=== PATIENT | female | born 1985 | race Caucasian/White ===

== ENCOUNTER → 2016-11-28 | Outpatient (CLI) | payer BC ==
[~2016-11-28] MED LIST: ERGO400C PO; LACT1CAP52 PO; PREN1TAB53 PO
== END ==
LOC: LAB 21:13
PROVIDERS: ATTEND Obstetrics & Gynecology
DX: Z20.9 Contact with and (suspected) exposure to unspecified communicable disease (principal)
CPT/HCPCS: 36415; 86777; 86778

== ENCOUNTER 2017-06-09 01:45 | Inpatient (IN) ==
--- OUTSIDE RECORDS SUMMARY | 2017-06-09 01:52 | External Medical Summary | Continuity of Care Document ---
:1985 Author Organization [facility] Address [address] [place], [place] [id number] Phone Care Team Providers Name Role Phone Pedro Tate MD Unavailable Unavailable Allergies, Adverse Reactions, Alerts Substance Reaction Severity Status amoxicillin rash Unknown Active WARNIN allergy(ies) could not be collected because the type is not supported. Please contact [facility] practice for further details. 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) w/o abn findings Suprvsn of preg w history of pre-term - labor, second tri 23 weeks gestation of - Suprvsn of preg w history of pre-term - labor, first trimester Supervision of other high risk - pregnancies, first trimester Encntr screen for infections w sexl - mode of transmiss Encounter for screening for oth - infec/parastc diseases Encounter for screening of - mother 10 weeks gestation of - Suprvsn of preg w history of pre-term - labor, second tri Supervision of other high risk - pregnancies, second trimester 19 weeks gestation of - Suprvsn of preg w history of pre-term - labor, second tri Supervision of other high risk - pregnancies, second trimester 19 weeks gestation of - Suprvsn of preg w history of pre-term - labor, second tri Supervision of other high risk - pregnancies, second trimester 14 weeks gestation of - Decreased libido Decreased libido Pap Smear Screening, Cervix - Dysuria - Active Procedures Procedure Date OB Visit No Charge Results Test Name Date and Time Measure Units Reference Range Abnormal Flag Comments Unknown Advance Directives Directive Yes / No Effective Date File Name Unknown Encounters Encounter Practice Location Reason(s) Diagnoses Date Provider Care Team Description For Visit Members Aminta Reynaga Suprvsn of preg w Shasta Referring In Womens history of 3-201 Latonya. Provider: Juliocesar MCCALLUM, pre-term labor, 7 700 Latonya [address] Box second [facility] [place] L, 1522, weeks gestation Center [address] [place] [address], of [place], 120, [place] [id number], [facility] 120, Ronnell [place], tel:+ [phone] [facility] , [place]. [id number]. tel: tel: [phone] Aminta Reynaga Suprvsn of preg w Shasta Referring In Womens history of 5-201 Latonya. Provider: Juliocesar MCCALLUM, pre-term labor, 7 700 Latonya PO Box second [place] L, 1522, triSupervision of [address], other high risk [place]o Crowder, pregnancies, 120, [place] [id number], [facility] Ronnell [facility] 120, [place] [id number] weeks Ronnell DELU[place], tel:+2 gestation of [phone] [facility] , [place]. [id number]. tel: tel: [phone] Associates Ronnell Suprvsn of preg w Galileo- Shasta Referring In Womens Ultrasound history of 5-201 Latonya. Provider: Health XENA, pre-term labor, 7 700 Latonya PO Box second Medical [place] L, 1522, triSupervision of Center [address] [place] [address], other high risk Dr Jericho Fransisco DELU[place], pregnancies, 120, Center [id number], second Ronnell [place] 120, [place] [id number] weeks Ronnell [place], tel:+[phone] gestation of [id number] [place], , [place]. [id number]. tel: tel:[phone] Associates Ronnell December- Shasta In Womens 5-201 Latonya. Health XENA, 7 700 PO Box Medical 15[address], Center [place], Dr [place], 120, [id number], [place], [place], tel:[phone] , [place]. tel: [phone] Aminta [place] Suprvsn of preg w December- Shasta Referring In Womens history of 1-201 Latonya. Provider: Juliocesar MCCALLUM, pre-term labor, 7 700 Latonya PO Box second Medical [place] L, 1522, triSupervision of Center [address] [place] [address], other high risk [place] Crowder, pregnancies, 120, Center [id number], second [place] 120, [place] [id number] weeks Ronnell DELUNA, tel:+ gestation of [phone] [place], , [place]. [id number]. tel: tel:[phone] Associates Ronnell Suprvsn of preg w Nov- Shasta Referring In Womens history of 3-201 Latonya. Provider: Health XENA, pre-term labor, 7 700 Latonya PO Box first Medical [place] L, 1522, trimesterSupervis Center [address] [place] [address], ion of other high Dr Jericho Fransisco DELUNA, risk pregnancies, 120, Center [id number], first Ronnell [place] 120, [place] trimesterEncntr Ronnell [place], tel:+ screen for [phone] [place], infections w sexl , [place]. [id number]. mode of tel: tel:+ transmissEncounte [phone] r for screening for oth infec/parastc diseasesEncounter for screening of [id number] weeks gestation of Associates Ronnell Mejiantr for python programmer May- [place] Referring In Womens exam (general) 7-201 Hortencia. Provider: Juliocesar MCCALLUM, (routine) w/o abn 6 700 Latonya PO Box findingsPap Smear Medical [place] L, 1522, Screening, Cervix Center [address] [place], [facility], 120, [place] [id number], [facility] 120, [facility], tel:+ [phone] [place], , [place]. [id number]. tel: tel:+[phone] Aminta [place] Decreased libido Dec-0 Shasta Referring In Womens 4-201 Latonya. Provider: Juliocesar MCCALLUM, 5 700 Latonya PO Box Medical [place] L, 1522, Center [address] [place], [facility], 120, [place] [id number], Ronnell [place] [address], [facility], tel:+ [phone] [place], , [place]. [id number]. tel: tel: [phone] Aminta [place] Decreased libido Nov-0 Shasta Referring In Womens 6-201 Latonya. Provider: Juliocesar MCCALLUM, 5 700 Latonya PO Box Medical [place] L, 1522, Center [address] [place], [facility], 120, [place] [id number], [facility] 120, Ronnell [place], tel:[phone] [place], , [place]. [id number]. tel: tel:[phone] Aminta Reynaga Galileo-1 Shasta Referring In Womens 7-201 Latonya. Provider: Juliocesar MCCALLUM, 3 700 Pedro PO Box Medical [place] 1522, Center O, [address] [place], [facility], 120, , [id number], Ronnell [place], [facility], [place], . tel:[phone] tel: , . [id number] tel: [phone] Aminta Reyn[place] Shasta Referring In Womens 9-201 Latonya. Provider: Juliocesar MCCALLUM, 700 [facility] 1522, Center O, [address] [place], [place]iles [place], 120, St, [id number], Jose [place], [facility] [place], [address]. tel: [phone] tel: [phone] , . [id number] tel: [phone] Family History Family Member Diagnosis Age At Onset Maternal Grandmother Osteoporosis Sister Renal disease Mother Leukemia Mother Renal disease Paternal Grandfather Cardiovascular Disease Maternal Grandfather Stroke Paternal Grandfather Hypertension Mother Thyroid Disorder Father Hypertension Immunizations Vaccine Date Status Comments Unknown Payers Payer name Insurance type Covered republican ID Authorization(s) [facility] [id number] Social History Type Description Quantity Date Captured Alcohol Use Details No Caffeine Use Details Unknown Tobacco Use Status Unknown Smoking Status Never smoker Vital Signs Date / Height Weight BMI Pulse Blood Temperature Respiratory Body Head BMI Time: Rate Pressure Rate Surface Circumference percentile Area 4 3:35 kg/m PM eter (2) 136.10 23.7 100/60 -2017 lbs 3 mm[Hg] 3:40 kg/m PM eter (2) Chief Complaint And Reason For Visit Unknown Chief Complaint And Reason For Visit Reason For Referral Reason For Referral Unknown Plan Of Care Date Type Action Status Appointment Zulma Gallagher BOOKED Future Order: Radiology Order Complete OB Ultrasound > 14 Ordered Weeks ([id number]) Future Order: Lab Order Pap Smear With HPV Reflex If ASCUS Ordered ([id number]) Date Type Problem Goal Intervention Status Start Date Unknown. History Of Present Illness Encounter Date Complaint History Of Present Illness This patient has no known history of present illness Functional Status Encounter Date Functional Assessment Cognitive Assessment Unknown Medications Administered Medication Instructions Dosage Effective Dates (start - stop) Status Comments Drug Treatment Unknown Instructions Date Instruction Additional Information genetic testing Zika virus assessment & precautions HIV and other routine tests risk factors identified by history anticipated course of care nutrition and weight gain counseling, special diet toxoplasmosis precautions (cats / raw meat) sexual activity exercise indications for ultrasound influenza vaccine environmental / work hazards travel use of any medications (including supplements, vitamins, herbs, OTC drugs) domestic violence seat belt use childbirth classes / hospital facilities hospital registration
--- OUTSIDE RECORDS SUMMARY | 2017-06-09 01:52 | External Medical Summary | Continuity of Care Document ---
:1985 Author Organization [facility] Address [address] [place], [place] [id number] Phone Care Team Providers Name Role Phone Pedro Tate MD Unavailable Unavailable Allergies, Adverse Reactions, Alerts Substance Reaction Severity Status amoxicillin rash Unknown Active WARNIN allergy(ies) could not be collected because the type is not supported. Please contact [facility] practice for further details. 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 [...] other high risk - pregnancies, second trimester 27 weeks gestation of - Suprvsn of preg w history of pre-term - labor, second tri 23 weeks gestation of - Suprvsn of preg w history of pre-term - labor, second tri Supervision of other high risk - pregnancies, second trimester 14 weeks gestation of - Suprvsn of preg w history of pre-term - labor, third trimester Supervision of other high risk - pregnancies, third trimester Matern care for oth or susp poor fetl - grth, third tri, unsp 32 weeks gestation of - Suprvsn of preg w history of pre-term - labor, third trimester Supervision of other high risk - pregnancies, third trimester 34 weeks gestation of - Suprvsn of preg w history of pre-term - labor, third trimester Supervision of other high risk - pregnancies, third trimester Matern care for oth or susp poor fetl - grth, third tri, unsp 30 weeks gestation of - Suprvsn of preg w history of pre-term - labor, third trimester Supervision of other high risk - pregnancies, third trimester 32 weeks gestation of - Decreased libido Decreased libido Pap Smear Screening, Cervix - Dysuria - Active Procedures Procedure Date Unknown Results Test Name Date and Time Measure Units Reference Range Abnormal Flag Comments Unknown Advance Directives Directive Yes / No Effective Date File Name Unknown Encounters Encounter Practice Location Reason(s) Diagnoses Date Provider Care Team Description For Visit Members Aminta Lópezn of preg w Sep-2 Shasta Referring In Womens history of 5-201 Latonya. Provider: Juliocesar MCCALLUM, pre-term labor, 7 700 Latonya PO Box third Medical [place] L, 1522, trimesterSupervis Center [address] [place], ion of other high [place] Crow[place], risk pregnancies, 120, Center [id number], third [id number] [place], [place] 120, [place] weeks gestation Ronnell DELUNA, tel:+[phone] of [phone] [place], , [place]. [id number]. tel: tel: [phone] Associates Ronnell Sep-1 Shasta In Womens 8-201 Latonya. Juliocesar MCCALLUM, 7 700 PO Box Medical [address], [place] [address] [place], 120, [id number], [place], tel:[phone] , [place]. tel: [phone] Aminta [place] Suprraynan of preg w Sep-1 Shasta Referring In Womens history of 1-201 Latonya. Provider: Juliocesar MCCALLUM, pre-term labor, 7 700 Latonya PO Box third Medical [place] L, 1522, trimesterSupervis Center [address] [place], ion of other high [place] Crowder, risk pregnancies, 120, Center [id number], third [id number] Ronnell [place] 120, [place] weeks gestation Ronnell DELUNA, tel:+ of [phone] [place], , [place]. [id number]. tel: tel:[phone] Associates [facility] Suprvsn of preg w Sep-1 Shasta Referring In Womens Ultrasound history of 1-201 Latonya. Provider: Juliocesar MCCALLUM, pre-term labor, 7 700 Latonya PO Box third Medical [place] L, 1522, trimesterSupervis Center [address] [place], ion of other high [place] Crowder, risk pregnancies, 120, Center [id number], third Ronnell [place] 120, [place] trimesterMatern Ronnell DELUNA, tel:+ care for oth or [phone] [place], susp poor fetl , [place]. [id number]. grth, third tri, tel: tel:+[phone] unsp32 weeks [phone] gestation of Associates Ronnell Suprvsn of preg w Shasta Referring In Womens history of 9-201 Latonya. Provider: Health PA, pre-term labor, 7 700 Latonya PO Box third Medical [place] L, 1522, trimesterSupervis Center [address] [place] [address], ion of other high [place]o Crowder, risk pregnancies, 120, Center [id number], third Ronnell [facility] 120, [place] trimesterMatern Ronnell DELUNA, tel:+ care for oth or [phone] [place], susp poor fetl , [place]. [id number]. grth, third tri, tel: tel:+[phone] unsp30 weeks [phone] gestation of Associates Ronnell Suprvsn of preg w Shasta Referring In Womens history of 7-201 Latonya. Provider: Health XENA, pre-term labor, 7 700 Latonya PO Box second Medical [place] L, 1522, triSupervision of Center [address] [place] [address], other high risk [place] Crowder, pregnancies, 120, Center [id number], second Ronnell [facility] 120, [place] [id number] weeks Ronnell DELUNA, tel:+ gestation of [phone] [place], , [place]. [id number]. tel: tel: [phone] Aminta [place] Suprvsn of preg w Shasta Referring In Womens history of 3-201 Latonya. Provider: Health XENA, pre-term labor, 7 700 Latonya PO Box second tri23 Medical [place] L, 1522, weeks gestation Center [address] [place] [address], of Jer[place]o Crowder, 120, Center [id number] Galindo [facility] 120, [place] Ronnell DELUNA, tel:+ [phone] [place], , [place]. [id number]. tel: tel:[phone] Aminta [place] Suprvsn of preg w Shasta Referring In Womens history of 5-201 Latonya. Provider: Health XENA, pre-term labor, 7 700 Latonya PO Box second Medical [place] L, 1522, triSupervision of Center [address] [place] [address], other high risk [place] Crowder, pregnancies, 120, Center [id number], stephenie [place] 120, [place] weeks Ronnell DELUNA, tel:+[phone] gestation of [id number] [place], , [place]. [id number]. tel: tel:+[phone] Aminta [place] Suprvsn of preg w Galileo- Shasta Referring In Womens Ultrasound history of 5-201 Latonya. Provider: Juliocesar MCCALLUM, pre-term labor, 7 700 Latonya PO Box second Medical [place] L, 1522, triSupervision of Center [address] [place] [address], other high risk [place] Crowder, pregnancies, 120, Center [id number], [place] 120, [place] [id number] weeks Ronnell DELUNA, tel:+[phone] gestation of [id number] [place], , [place]. [id number]. tel: tel:+[phone] Aminta Reynaga December- Shasta In Womens 5-201 Latonya. Juliocesar MCCALLUM, 7 700 PO Box Medical [address], [place], [facility] [place], 120, [id number], [place], [place], tel:[phone] , [place]. tel: [phone] Aminta Reyn[place] Suprvsn of preg w December- Shasta Referring In Womens history of 1-201 Latonya. Provider: Juliocesar MCCALLUM, pre-term labor, 7 700 Latonya PO Box second Medical [place] L, 1522, triSupervision of Center [address] [place] [address], other high risk [place]o Crowder, pregnancies, 120, Center [id number], [place] 120, [place] [id number] weeks Ronnell DELUNA, tel:+[phone] gestation of [id number] [place], , [place]. [id number]. tel: tel:+[phone] Aminta Reynaga Suprvsn of preg w Nov- Shasta Referring In Womens history of 3-201 Latonya. Provider: Juliocesar MCCALLUM, pre-term labor, 7 700 Latonya PO Box first Medical [place] L, 1522, trimesterSupervis Center [facility] [place], marika of other high , [facility] [place] DELUNA, risk pregnancies, 120, Center [id number], [facility] Ronnell [facility] 120, [place] trimesterEncntr Ronnell DELUNA, tel:+[phone] screen for [id number] [place], infections w sexl , [place]. [id number]. mode of tel: tel:+-[phone] transmissEncounte [phone] r for screening for oth infec/parastc diseasesEncounter for screening of [id number] weeks gestation of Associates Ronnell Jose for manager food May- [place] Referring In Womens exam (general) 7-201 Hortencia. Provider: Juliocesar MCCALLUM, (routine) w/o abn 6 700 Latonya PO Box findingsPap Smear Medical [place] L, 1522, Screening, Cervix Center [facility] [address] [place], [facility], 120, Center [id number], Ronnell [facility] 120, [place] Ronnell DELUNA, tel:+ [phone] [place], , [place]. [id number]. tel: tel:[phone] Aminta [place] Decreased libido Dec-0 Shasta Referring In Womens 4-201 Latonya. Provider: Juliocesar MCCALLUM, 5 700 Latonya PO Box Medical [place] L, 1522, Center [facility] [address] [place], [facility], 120, Center [id number], Ronnell [facility] 120, Ronnell DELUNA, tel:+[phone] [place], , [place]. [id number]. tel: tel:[phone] Aminta [place] Decreased libido Nov-0 Shasta Referring In Womens 6-201 Latonya. Provider: Juliocesar MCCALLUM, 5 700 Latonya PO Box Medical [place] L, 1522, Center [facility] [address] [place], [facility] [place], 120, Center [id number], Ronnell [facility] 120, [place] Ronnell DELUNA, tel:[phone] [place], , [place]. [id number]. tel: tel: [phone] Associates Ronnell Jan- Shasta Referring In Womens 7-201 Latonya. Provider: Juliocesar MCCALLUM, 3 700 [facility] 1522, Center O, [address] [place], [place], 120, St, [id number], [facility], [place], [address]. tel: [phone] tel: , . [id number] tel: [phone] Associates Ronnell Nov- Shasta Referring In Womens 9-201 Latonya. Provider: Juliocesar MCCALLUM, 3 700 [facility] 1522, [place], [address] [place], [place], 120, St, [id number], [facility], [address]. tel: [phone] tel: , . [id number] tel: [phone] Family History Family Member Diagnosis Age At Onset Maternal Grandmother Osteoporosis Sister Renal disease Mother Leukemia Mother Renal disease Paternal Grandfather Cardiovascular Disease Maternal Grandfather Stroke Paternal Grandfather Hypertension Mother Thyroid Disorder Father Hypertension Immunizations Vaccine Date Status Comments Unknown Payers Payer name Insurance type Covered alliance party ID Authorization(s) [place] [id number] Social History Type Description Quantity Date Captured Unknown Vital Signs Date / Height Weight BMI Pulse Blood Temperature Respiratory Body Head BMI Time: Rate Pressure Rate Surface Circumference percentile Area Unknown Chief Complaint And Reason For Visit Unknown Chief Complaint And Reason For Visit Reason For Referral Reason For Referral Unknown Plan Of Care Date Type Action Status Appointment Zulma Gallagher BOOKED Appointment Zulma Gallagher BOOKED Appointment Zulma Gallagher BOOKED Zulma Hines BOOKED Future Order: Radiology Order Complete OB Ultrasound > 14 Ordered Weeks ([id number]) Future Order: Radiology Order Ultrasound OB Follow-up ([id number]) Ordered Future Order: Lab Order Pap Smear With [...]
--- OUTSIDE RECORDS SUMMARY | 2017-06-09 01:53 | External Medical Summary | Continuity of Care Document ---
:1985 Author Organization [facility] Address [address] [place], [place] [id number] Phone Care Team Providers Name Role Phone Pedro Tate MD Unavailable Unavailable Allergies, Adverse Reactions, Alerts Substance Reaction Severity Status amoxicillin rash Unknown Active WARNIN allergy(ies) could not be collected because the type is not supported. Please contact [facility] for further details. 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 Suprvsn of preg w history of pre-term - labor, third trimester Supervision of other high risk - pregnancies, third trimester 32 weeks gestation of - Suprvsn of [...] tri, unsp 30 weeks gestation of - Decreased libido Decreased libido Pap Smear Screening, Cervix - Dysuria - Active Procedures Procedure Date OB Visit No Charge Results Test Name Date and Time Measure Units Reference Range Abnormal Flag Comments Unknown Advance Directives Directive Yes / No Effective Date File Name Unknown Encounters Encounter Practice Location Reason(s) Diagnoses Date Provider Care Team Description For Visit Members [facility] Ronnell Gauthier of preg w Sep-2 [place] Referring In Womens history of 5-201 Latonya. Provider: Juliocesar MCCALLUM, pre-term labor, 7 700 [place]ony[place] [address] third Medical [place] L, 1522, [facility] Center [address] [place], ion of other high [place], risk pregnancies, 120, Center [id number], third [id number] Ronnell [place] 120, [place] weeks gestation Ronnell [place], tel:[phone] [place], , [place]. [id number]. tel: tel:[phone] Associates Ronnell Lópezn of preg w Sep-1 [place]asta Referring In Womens history of 1-201 Latonya. Provider: Juliocesar MCCALLUM, pre-term labor, 7 700 Latonya PO Box third Medical [place] L, 1522, trimesterSupervis Center [address] [place], ion of other high [place], risk pregnancies, 120, Center [id number], third [id number] Ronnell [place] 120, [place] weeks gestation Ronnell [place], tel:[phone] of [phone] [place], , [place]. [id number]. tel: tel:[phone] Associates Ronnell Lópezn of preg w Sep-1 [place] Referring In Womens Ultrasound history of 1-201 Latonya. Provider: Juliocesar MCCALLUM, pre-term labor, 7 700 Latonya PO Box third Medical [place] L, 1522, trimester[facility] Center [address] [place], ion of other high [place] Crow[place], risk pregnancies, 120, Center [id number], third Ronnell [place] 120, [place] trimesterMatern Ronnell [place], tel:[phone] care for oth or [phone] [place], susp poor fetl , [place]. [id number]. grth, third tri, tel: tel:[phone] unsp32 weeks [phone] gestation of Associates Ronnell Lópezn of preg w Mar-2 [place]asta Referring In Womens history of 9-201 Latonya. Provider: [facility], pre-term labor, 7 700 Latonya PO Box third Medical [place] L, 1522, trimesterSupervis Center [address] [place] [address], ion of other high [place] Crow[place], risk pregnancies, 120, Center [id number], third Ronnell [facility] 120, [place] trimesterMatern Ronnell [place], tel:[phone] care for oth or [phone] [place], susp poor fetl , [place]. [id number]. grth, third tri, tel: tel:+-[phone] unsp30 weeks [phone] gestation of Associates Ronnell Suprvsn of preg w Shasta Referring In Womens history of 7-201 Latonya. Provider: Juliocesar MCCALLUM, pre-term labor, 7 700 [place]onya PO Box second Medical [place] L, 1522, triSupervision of Center [address] [place] [address], other high risk [place] Crow[place], pregnancies, 120, Center [id number], second [place] 120, [place] [id number] weeks Ronnell DELUNA, tel:[phone] gestation of [id number] [place], , [place]. [id number]. tel: tel:[phone] Associates Ronnell Suprraynan of preg w Shasta Referring In Womens history of 3-201 Latonya. Provider: Juliocesar MCCALLUM, pre-term labor, 7 700 Latonya PO Box second tri23 Medical [place] L, 1522, weeks gestation Center [address] [place] [address], of [place], 120, Center [id number], Ronnell [facility] 120, [place] Ronnell [place], tel:[phone] [facility] , [place]. [id number]. tel: tel:[phone] Associates Ronnell Suprraynan of preg w [place]asta Referring In Womens history of 5-201 Latonya. Provider: Juliocesar MCCALLUM, pre-term labor, 7 700 Latonya PO Box second Medical [place] L, 1522, triSupervision of Center [address] [place] [address], other high risk [place] Crow[place], pregnancies, 120, Center [id number], second [place], [place] 120, [place] weeks REGI [place], tel:[phone] gestation of [phone] [place], , [place]. [id number]. tel: tel:[phone] Associates Ronnell Suprvsn of preg w Galileo- Shasta Referring In Womens Ultrasound history of 5-201 Latonya. Provider: Health [facility], pre-term labor, 7 700 Latonya PO Box second Medical [place] L, 1522, triSupervision of Center [address] [place] [address], other high risk Dr [facility], pregnancies, 120, Center [id number], second Ronnell [place] 120, [place] [email or web address] weeks REGI Ronnell, tel:+[phone] gestation of [id number] [place], , [place]. [id number]. tel: tel:[phone] Associates Ronnell December- Shasta In Womens 5-201 Latonya. Health XENA, 7 700 PO Box Medical 1522, [place], [facility] [place], 120, [id number], [place], tel:[phone] , [place]. tel: [phone] Aminta [place] Suprvsn of preg w December- Shasta Referring In Womens history of 1-201 Latonya. Provider: Juliocesar MCCALLUM, pre-term labor, 7 700 Latonya PO Box second Medical [place] L, 1522, triSupervision of Center [address] [place], [place] [address], other high risk [place] Crow[place], pregnancies, 120, Center [id number], second [place] 120, [place] [id number] weeks Ronnell DELUNA, tel:[phone] gestation of [id number] [place], , [place]. [id number]. tel: tel:[phone] Associates Ronnell Suprvsn of preg w Nov- Shasta Referring In Womens history of 3-201 Latonya. Provider: Juliocesar MCCALLUM, pre-term labor, 7 700 Latonya PO Box first Medical [place] L, 1522, trimesterSupervis Center [address] [place] [address], ion of other high [facility] [place], risk pregnancies, 120, Center [id number], first Ronnell [place] 120, [place] trimesterEncntr Ronnell [place], tel:+ screen for [phone] [place], infections w sexl , [place]. [id number]. mode of tel: tel:+[phone] transmissEncounte [phone] r for screening for oth infec/parastc diseasesEncounter for screening of hcdulo10 weeks gestation of Associates Ronnell Encntr for consulting practice manager May- [place] Referring In Womens exam (general) 7- [facility]. Provider: Juliocesar MCCALLUM, (routine) w/o abn 6 700 Latonya PO Box findingsPap Smear Medical [place] L, 1522, Screening, Cervix Center [address] [place], [facility], 120, Center [id number], Ronnell [facility] 120, [place] Ronnell [place], tel:[phone] [place], , [place]. [id number]. tel: tel:[phone] Aminta [place] Decreased libido Dec-0 Shasta Referring In Womens 4-201 Latonya. Provider: Juliocesar MCCALLUM, 5 700 Latonya PO Box Medical [place] L, 1522, Center [address] [place], [facility], 120, Center [id number], Ronnell [facility] 120, [place] Ronnell [place]UNA, tel:+ [phone] REGI, , [place]. [id number]. tel: tel:[phone] Aminta [place] Decreased libido Nov-0 Shasta Referring In Womens 6-201 Latonya. Provider: Juliocesar MCCALLUM, 5 700 Latonya PO Box Medical [place] L, 1522, Center [address] [place], [facility], 120, Center [id number], Ronnell [facility] 120, [place] Ronnell [place], tel:[phone] [place], , [place]. [id number]. tel: tel:[phone] Aminta [place] Galileo-1 [place]asta Referring In Womens 7-201 Latonya. Provider: Juliocesar MCCALLUM, 3 700 Pedro PO Box Medical [place] 1522, Center O, [address] [place], [place], 120, St, , [facility], [place], [address]. tel: [phone] tel: , . [id number] tel: [phone] Aminta [place] Nov- Shasta Referring In Womens 9-201 Latonya. Provider: [facility], [address] [place] [address] 1522, [place], [address] [place], [place], 120, St, [id number], [facility], [place], [address]. tel: [phone] tel: , . [phone] tel: [phone] Family History Family Member Diagnosis Age At Onset Maternal Grandmother Osteoporosis Sister Renal disease Mother Leukemia Mother Renal disease Paternal Grandfather Cardiovascular Disease Maternal Grandfather Stroke Paternal Grandfather Hypertension Mother Thyroid Disorder Father Hypertension Immunizations Vaccine Date Status Comments Unknown Payers Payer name Insurance type Covered republican ID Authorization(s) [facility] [id number] Social History Type Description Quantity Date Captured [...] Zulma Gallagher BOOKED Appointment Zulma Gallagher BOOKED Future Order: Radiology Order Complete OB Ultrasound > 14 Ordered Weeks ([id number]) Future Order: Radiology Order Ultrasound OB Follow-up ([id number]) Ordered Future Order: Lab Order Pap Smear [...]
--- OUTSIDE RECORDS SUMMARY | 2017-06-09 01:53 | External Medical Summary | Continuity of Care Document ---
:1985 Author Organization [facility] Address [address] [place], [place] [id number] Phone Care Team Providers Name Role Phone Pedro Tate MD Unavailable Unavailable Allergies, Adverse Reactions, Alerts Substance Reaction Severity Status amoxicillin rash Unknown Active WARNIN allergy(ies) could not be collected because the type is not supported. Please contact [facility] for further details. 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 [...] Procedures Procedure Date OB Visit No Charge Glucose test Hemoglobin count, colorimetric Hematocrit blood count Venpnctr fngr/heel/ear stick routne Results Test Name Date and Time Measure Units Reference Range Abnormal Flag Comments Panel Description: Glucose [Mass/volume] in Serum or Plasma --1 hour post 50 g glucose PO GLUCOSE, 104 mg/dL <140 N Test performed at [facility] GESTATIONAL SCREEN 11:20:[id number] ([id number])-[address] [place] [address]Ivosbpln: NEERU BETANCOURT DO,MPH Panel Description: HEMOGLOBIN + HEMATOCRIT HEMOGLOBIN 11:20:00 12.5 g/dL 11.7-15.5 N HEMATOCRIT 11:20:00 37.2 % 35.0-45.0 N Test performed at [facility] [id number] [place] [address]Rfsjlmvf: NEERU BETANCOURT DO,MPH Advance Directives Directive Yes / No Effective Date File Name Unknown Encounters Encounter Practice Location Reason(s) Diagnoses Date Provider Care Team Description For Visit Members [facility]nell Suprvsn of preg w 0 [place] Referring In Womens history of 7-201 Latonya. Provider: Juliocesar MCCALLUM, pre-term labor, 7 700 [place]onya PO Box second Medical [place] L, 1522, triSupervision of Center [address] [place] [address], other high risk [place] Crowder, pregnancies, 120, Center [id number], second [place] 120, [place] [email or web address] weeks Ronnell DELUNA, tel:+[phone] gestation of [phone] [place], , [place]. [id number]. tel: tel:+[phone] Associates Ronnell Suprvsn of preg w [place] Referring In Womens history of 3-201 Latonya. Provider: Juliocesar MCCALLUM, pre-term labor, 7 700 Latonya PO Box second [facility]23 Medical [place] L, 1522, weeks gestation Center [address] [place] [address], [address] Dr [facility] [place], 120, [place] [id number], Ronnell [facility] 120, [place] Ronnell [place], tel:[phone] [place], , [place]. [id number]. tel: tel:[phone] Associates Ronnell Suprvsn of preg w [place]asta Referring In Womens history of 5-201 Latonya. Provider: Juliocesar MCCALLUM, pre-term labor, 7 700 Latonya PO Box second Medical [place] L, 1522, triSupervision of Center [address] [place] [address], other high risk [place] Crowder, pregnancies, 120, [place] [id number], second Ronnell [place] 120, [place] weeks Ronnell DELUNA, tel:+[phone] gestation of [id number] [place], , [place]. [id number]. tel: tel:[phone] Associates Ronnell Suprvsn of preg w Jan- [place] Referring In Womens Ultrasound history of 5-201 Latonya. Provider: Juliocesar MCCALLUM, pre-term labor, 7 700 Latonya PO Box second Medical [place] L, 1522, triSupervision of Center [address] [place] [address], other high risk [facility] REGI, pregnancies, 120, Center [id number], second Ronnell [facility] 120, [place] [id number] weeks REGIRonnell, tel:+[phone] gestation of [id number] [place], , [place]. [id number]. tel: tel:[phone] Associates Ronnell December- Shasta In Womens 5-201 Latonya. Health XENA, 7 700 PO Box Medical 1522, [facility], , [facility] [place], 120, [id number], [place], [place], tel:[phone] , [place]. tel: [phone] Aminta [place] Suprvsn of preg w Shasta Referring In Womens history of 1-201 Latonya. Provider: Juliocesar MCCALLUM, pre-term labor, 7 700 [place]onya PO Box second Medical [place] L, 1522, triSupervision of Center [address] [place] [address], other high risk , [facility], pregnancies, 120, Center [id number], second Ronnell [facility] 120, [place] [id number] weeks Ronnell DELUNA, tel:+[phone] gestation of [id number] [place], , [place]. [id number]. tel: tel:+[phone] Aminta [place] Suprvsn of preg w Shasta Referring In Womens history of 3-201 Latonya. Provider: Juliocesar MCCALLUM, pre-term labor, 7 700 Latonya PO Box first Medical [place] L, 1522, trimesterSupervis Center [address] [place] [address], ion of other high [facility], risk pregnancies, 120, Center [id number], [facility], [place] trimesterEncntr Ronnell DELU[place], tel:+[phone] screen for [id number] [place], infections w sexl , [place]. [id number]. 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 Provider: Juliocesar MCCALLUM, (routine) w/o abn 6 700 Latonya PO Box findingsPap Smear [facility], 1522, Screening, Cervix Center [address] [place], [facility], 120, Center [id number], [facility] 120, Ronnell [place], tel:[phone] [place], , [place]. [id number]. tel: tel:[phone] Associates Ronnell Decreased libido Dec-0 [place]asta Referring In Womens 4-201 Latonya. Provider: Juliocesar MCCALLUM, 5 700 Latonya PO Box Medical [facility] L, 1522, Center [address] [place], [facility], 120, [place] [id number], Ronnell [facility] 120, [facility], tel:+ [phone] [place], , [place]. [id number]. tel: tel: [phone] Aminta [place] Decreased libido Nov-0 Shasta Referring In Womens 6-201 Latonya. Provider: Juliocesar MCCALLUM, 5 700 Latonya PO Box Medical [facility] L, 1522, Center [address] [place], [facility], 120, Center [id number], Ronnell [facility] 120, Ronnell DELUNA, tel:[phone] [place], , [place]. [id number]. tel: tel:[phone] Aminta [place] Galileo-1 [place]asta Referring In Womens 7-201 Latonya. Provider: Juliocesar MCCALLUM, [address] [facility] 1522, Center O, [address], [place], 120, St, [id number], Ronnell [place], [facility], [place], [address]. tel:[phone] tel: , [place]. [id number] tel: [phone] Aminta [place] Apr-1 [place]asta Referring In Womens 9-201 Latonya. Provider: Juliocesar MCCALLUM, [address] [facility] 1522, Center O, [address], [place], 120, St, , Keiry [place], REGI, [place], [address]. tel:[phone] tel:[phone] , . [id number] tel: [phone] Family History Family Member Diagnosis Age At Onset Maternal Grandmother Osteoporosis Sister Renal disease Mother Leukemia Mother Renal disease Paternal Grandfather Cardiovascular Disease Maternal Grandfather Stroke Paternal Grandfather Hypertension Mother Thyroid Disorder Father Hypertension Immunizations Vaccine Date Status Comments Unknown Payers Payer name Insurance type Covered libertarian ID Authorization(s) [facility] [id number] Social History Type Description Quantity Date Captured [...] Complete OB Ultrasound > 14 Ordered Weeks ([id number]) Future Order: Lab Order Pap Smear With [...]
--- OUTSIDE RECORDS SUMMARY | 2017-06-09 01:53 | External Medical Summary | Continuity of Care Document ---
:1985 Author Organization [facility] [employer] [facility] Address [address] [place], [place] [id number] Phone Care Team Providers Name Role Phone Pedro Tate MD Unavailable Unavailable Allergies, Adverse Reactions, Alerts Substance Reaction Severity Status amoxicillin rash Unknown Active WARNIN allergy(ies) could not be collected because the type is not supported. Please contact [facility] for further details. 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 [id number]. tel: tel:[phone] Associates Ronnell Lópezn of preg w Sep-1 Shasta Referring In Womens history of 1-201 Latonya. Provider: Juliocesar MCCALLUM, pre-term labor, 7 700 [place]onya PO Box third Medical [place] L, 1522, trimesterSupervis Center [address], ion of other high [place] Crow[place], risk pregnancies, 120, Center [id number], third [id number] Ronnell [place] 120, [place] weeks gestation Ronnell DELUNA, tel: of [phone] [place], , [place]. [id number]. tel: tel:[phone] Associates Ronnell Gauthier of preg w Sep-1 Shasta Referring In Womens Ultrasound history of 1-201 Latonya. Provider: Juliocesar MCCALLUM, pre-term labor, 7 700 [place] PO Box third Medical [place] L, 1522, trimesterSupervis Center [address], ion of other high [place] Crowder, risk pregnancies, 120, Center [id number], third Ronnell [place] 120, [place] trimesterMatern Ronnell DELUNA, tel:[phone] care for oth or [phone] [place], susp poor fetl , [place]. [id number]. grth, third tri, tel: tel:[phone] unsp32 weeks [phone] gestation of Associates Ronnell Gauthier of preg w Mar- Shasta Referring In Womens history of 9-201 Latonya. Provider: Health XENA, pre-term labor, 7 700 [place]onya PO Box third Medical [place] L, 1522, trimesterSupervis Center [address] [place] [address], ion of other high Jer[place]o Crowder, risk pregnancies, 120, Center [id number], third Ronnell [place] 120, [place] trimesterMatern Ronnell DELUNA, tel:+[phone] care for oth or [id number] [place], susp poor fetl , [place]. [id number]. grth, third tri, tel: tel:+[phone] unsp30 weeks [phone] gestation of Associates Ronnell Suprvsn of preg w Shasta Referring In Womens history of 7-201 Latonya. Provider: Juliocesar MCCALLUM, pre-term labor, 7 700 [place] PO Box second Medical [place] L, 1522, triSupervision of Center [address] [place] [address], other high risk [place]o Crowder, pregnancies, 120, Center [id number], second Ronnell [place] 120, [place] [email or web address] weeks Ronnell DELUNA, tel:+2 gestation of [id number] [place], , [place]. [id number]. tel: tel:[phone] Associates Ronnell Suprraynan of preg w Shasta Referring In Womens history of 3-201 Latonya. Provider: Juliocesar MCCALLUM, pre-term labor, 7 700 [place] PO Box second tri23 Medical [place] L, 1522, weeks gestation Center [address] [place] [address], of [place]o Crowder, 120, Center [id number] Galindo [facility] 120, [place] Ronnell DELUNA, tel:+ [phone] [place], , [place]. [id number]. tel: tel:[phone] Associates Ronnell Suprvsn of preg w Shasta Referring In Womens history of 5-201 Latonya. Provider: Juliocesar MCCALLUM, pre-term labor, 7 700 [place] PO Box second Medical [place] L, 1522, triSupervision of Center [address] [place] [address], other high risk [place]o Crowder, pregnancies, 120, Center [id number], second [place], [place] 120, [place] [email or web address] weeks Ronnell DELUNA, tel:+[phone] gestation of [id number] [place], , [place]. [id number]. tel: tel:[phone] Associates Ronnell Suprvsn of preg w Galileo- Shasta Referring In Womens Ultrasound history of 5-201 Latonya. Provider: Juliocesar MCCALLUM, pre-term labor, 7 700 [place] PO Box second Medical [place] L, 1522, triSupervision of Center [address] [place] [address], other high risk [place] Crowder, pregnancies, 120, Center [id number], second Ronnell, [place] 120, [place] [id number] weeks Ronnell DELUNA, tel:+[phone] gestation of [id number] [place], , [place]. [id number]. tel: tel:+[phone] Associates Ronnell December- Shasta In Womens 5-201 Latonya. Juliocesar MCCALLUM, 7 700 PO Box Medical [address], [address] [place], [facility] [place], 120, [id number], [place], tel:[phone] , [place]. tel: [phone] Aminta [place] Suprvsn of preg w December- Shasta Referring In Womens history of 1-201 Latonya. Provider: Juliocesar MCCALLUM, pre-term labor, 7 700 [place]ony[place] PO Box second Medical [place] L, 1522, triSupervision of Center [address] [place], [place] [address]ta, other high risk [place]o Crowder, pregnancies, 120, Center [id number], second Ronnell [place] 120, [place] weeks Ronnell DELUNA, tel:+[phone] gestation of [id number] [place], , [place]. [id number]. tel: tel:+[phone] Associates Ronnell Suprvsn of preg w Nov- Shasta Referring In Womens history of 3-201 Latonya. Provider: Juliocesar MCCALLUM, pre-term labor, 7 700 [place]ony[place] PO Box first Medical [place] L, 1522, trimesterSupervis Center [address] [place] [address], ion of other high [place]o Crowder, risk pregnancies, 120, Center [id number], first Ronnell [facility] 120, [place] trimesterEncntr Ronnell DELUNA, tel:[phone] screen for [id number] [place], infections w sexl , [place]. [id number]. 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 Provider: Juliocesar MCCALLUM, (routine) w/o abn 6 700 [place]onya PO Box findingsPap Smear Medical Shasta L, 1522, Screening, Cervix Center [address] [place], [facility], 120, Center [id number], Ronnell [facility] 120, Ronnell DELUNA, tel:[phone] [place], , [place]. [id number]. tel: tel:[phone] Aminta [place] Decreased libido Dec-0 Shasta Referring In Womens 4-201 Latonya. Provider: Juliocesar MCCALLUM, 5 700 [place]onya PO Box Medical [place] L, 1522, Center [address] [place], [facility], 120, Center [id number], Ronnell [facility] 120, [place] Ronnell DELUNA, tel:[phone] [place], , [place]. [id number]. tel: tel:[phone] Aminta [place] Decreased libido Nov-0 Shasta Referring In Womens 6-201 Latonya. Provider: Juliocesar MCCALLUM, 5 700 [place]onya PO Box Medical [place] L, 1522, Center [address] [place], [facility], 120, Center [id number], Ronnell [facility] 120, [place] Ronnell DELUNA, tel:[phone] [place], , [place]. [id number]. tel: tel:[phone] Aminta [place] Galileo-1 Shasta Referring In Womens 7-201 Latonya. Provider: Health XENA, 3 700 Pedro PO Box Medical [place] 1522, Center O, [address], [address], [place], 120, St, [id number], [facility], [place], [address]. tel: [phone] tel: , . [id number] tel: [phone] Aminta [place] Shasta Referring In Womens 9-201 Latonya. Provider: [facility], [address] [place] [address] 1522, Center O, [address] [place], [place], 120, St, [id number], [facility], [place], [address]. tel:[phone] tel: , . [id number] tel: [phone] Family History Family Member Diagnosis Age At Onset Maternal Grandmother Osteoporosis Sister Renal disease Mother Leukemia Mother Renal disease Paternal Grandfather Cardiovascular Disease Maternal Grandfather Stroke Paternal Grandfather Hypertension Mother Thyroid Disorder Father Hypertension Immunizations Vaccine Date Status Comments Unknown Payers Payer name Insurance type Covered libertarian ID Authorization(s) [facility] [id number] Social History Type Description Quantity Date Captured [...] Zulma Gallagher BOOKED Future Order: Radiology Order Ultrasound OB Follow-up ([id number]) Ordered Future Order: Radiology Order Complete OB Ultrasound > 14 Ordered Weeks ([id number]) Future Order: Lab Order Pap Smear With [...]
--- OUTSIDE RECORDS SUMMARY | 2017-06-09 01:53 | External Medical Summary | Continuity of Care Document ---
:1985 Author Organization [facility] [facility] Address [address] [place], [place] [id number] Phone Care Team Providers Name Role Phone Pedro Tate MD Unavailable Unavailable Allergies, Adverse Reactions, Alerts Substance Reaction Severity Status amoxicillin rash Unknown Active WARNIN allergy(ies) could not be collected because the type is not supported. Please contact [facility] practice for further details. 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 [...] other high risk - pregnancies, first trimester Encounter for screening of - mother 10 weeks gestation of - Encntr screen for infections w sexl - mode of transmiss Encounter for screening for oth - infec/parastc diseases Suprvsn of preg w history of pre-term [...] history of pre-term - labor, third trimester 32 weeks gestation of - Supervision of other high risk - pregnancies, third trimester Decreased libido Decreased libido Pap Smear Screening, Cervix - Dysuria - Active Procedures Procedure Date Injection Administration Injectable Drug - Do Not Bill OB Visit No Charge Results Test Name Date and Time Measure Units Reference Range Abnormal Flag Comments Unknown Advance Directives Directive Yes / No Effective Date File Name Unknown Encounters Encounter Practice Location Reason(s) Diagnoses Date Provider Care Team Description For Visit Members Aminta [place] Suprvsn of preg w Apr- Shasta Referring In Womens history of 1-201 Latonya. Provider: Juliocesar MCCALLUM, pre-term labor, 7 700 [place] PO Box third Medical [place] L, 1522, weeks gestation Center [address] [place] [address], of Jericho Crowder, pregnancySupervis 120, Center [id number], ion of other high Ronnell, [facility] 120, [place] risk pregnancies, Ronnell DELUNA, tel:[phone] third trimester [id number] [place], , [place]. [id number]. tel:+09-06 tel:[phone] Associates Ronnell Gauthier of preg w Sep- Shasta Referring In Womens Ultrasound history of 1-201 Latonya. Provider: Juliocesar MCCALLUM, pre-term labor, 7 700 [place]ony[place] PO Box third Medical [place] L, 1522, trimesterSupervis Center [address] [place] [address], ion of other high [place]o Crowder, risk pregnancies, 120, Center [id number], [facility], [place] trimesterMatern Ronnell DELUNA, tel:[phone] care for oth or [id number] [place], susp poor fetl , [place]. [id number]. grth, third tri, tel:+09-06 tel:[phone] unsp32 weeks [phone] gestation of Associates Ronnell Gauthier of preg w Shasta Referring In Womens history of 9-201 Latonya. Provider: Juliocesar MCCALLUM, pre-term labor, 7 700 [place]ony[place] PO Box third Medical [place] L, 1522, trimesterSupervis Center [address] [place] [address], ion of other high Jer[place]o Crowder, risk pregnancies, 120, Center [id number], third Ronnell [facility] 120, [place] trimesterMatern Ronnell DELUNA, tel:[phone] care for oth or [id number] [place], susp poor fetl , [place]. [id number]. grth, third tri, tel:+09-06 tel:+[phone] unsp30 weeks [phone] gestation of Associates Ronnell Gauthier of preg w 0 Shasta Referring In Womens history of 7-201 Latonya. Provider: Health PA, pre-term labor, 7 700 [place]onya PO Box second Medical [place] L, 1522, triSupervision of Center [address] [place] [address], other high risk , Jericho DELUNA, pregnancies, 120, Center [id number], second Ronnell [place] 120, [place] [id number] weeks Ronnell DELUNA, tel:+[phone] gestation of [id number] [place], , [place]. [id number]. tel: tel:[phone] Associates Ronnell Suprvsn of preg w Feb- Shasta Referring In Womens history of 3-201 Latonya. Provider: Health PA, pre-term labor, 7 700 [place]onya PO Box second tri23 Medical Shasta L, 1522, weeks gestation Center [address] [place] [address], of [place], 120, Center [id number], Ronnell [place] 120, [place] Ronnell DELUNA, tel:[phone] [place], , [place]. [id number]. tel: tel:[phone] Associates Ronnell Suprvsn of preg w Shasta Referring In Womens history of 5-201 Latonya. Provider: Health PA, pre-term labor, 7 700 [place]onya PO Box second Medical [place] L, 1522, triSupervision of Center [address] [place] [address], other high risk , Jericho DELUNA, pregnancies, 120, Center [id number], second [place] 120, [place] [id number] weeks Ronnell DELUNA, tel:+[phone] gestation of [id number] [place], , [place]. [id number]. tel: tel:[phone] Aminta [place] Suprvsn of preg w Jan- Shasta Referring In Womens Ultrasound history of 5-201 Latonya. Provider: Health XENA, pre-term labor, 7 700 [place]onya PO Box second Medical [place] L, 1522, triSupervision of Center [address] [place] [address], other high risk [place]o Crowder, pregnancies, 120, Center [id number], second Ronnell [place] 120, [place] [id number] weeks Ronnell DELUNA, tel:+[phone] gestation of [id number] [place], , [place]. [id number]. tel: tel:+ [phone] Associates Ronnell December- Shasta In Womens 5-201 Latonya. Health PA, 7 700 PO Box Medical 1522, Center [place], Jer[place], 120, [id number], [place], [place], tel:[phone] , [place]. tel: [phone] Aminta [place] Suprvsn of preg w Shasta Referring In Womens history of 1-201 Latonya. Provider: Health XENA, pre-term labor, 7 700 Latonya PO Box second Medical Shasta L, 1522, triSupervision of Center [address] [place], [place] [address], other high risk , [facility] [place] DELUNA, pregnancies, 120, [place] [id number], [facility] Ronnell [facility] 120, [place] [id number] weeks Ronnell DELUNA, tel:2 gestation of [id number] [place], , [place]. [id number]. tel: tel: [phone] Associates Ronnell Suprvsn of preg w Shasta Referring In Womens history of 3-201 Latonya. Provider: Juliocesar MCCALLUM, pre-term labor, 7 700 [place]ony[place] PO Box first Medical [place] L, 1522, trimesterSupervis Center [address] [place] [address], ion of other high , [facility] [place] DELUNA, risk pregnancies, 120, [place] [id number], [facility] 120, [place] trimesterEncounte Ronnell DELUNA, tel: r for [phone] [place], screening of , [place]. [id number]. [id number] weeks tel: tel:+[phone] gestation of [phone] pregnancyEncntr screen for infections w sexl mode of transmissEncounte r for screening for oth infec/parastc diseases Associates Ronnell Pap Smear May- [place] Referring In Womens Screening, - [place]. Provider: Juliocesar MCCALLUM, CervixEncntr for 6 700 Latonya PO Box career development director exam Medical Shasta L, 1522, (general) [facility], (routine) w/o abn [place] Crow[place], findings 120, [place] [id number], Ronnell [facility] 120, Ronnell DELUNA, tel:[phone] [place], , [place]. [id number]. tel: tel: [phone] Associates Ronnell Decreased libido Dec-0 Shasta Referring In Womens 4-201 Latonya. Provider: Health XENA, 5 700 [facility], 1522, Center [address] [place], [facility], 120, [place] [id number], [place] [address], [facility], [place], tel:[phone] [place], , [place]. [id number]. tel: tel: [phone] Associates Ronnell Decreased libido Nov-0 Shasta Referring In Womens 6-201 Latonya. Provider: Health XENA, [address] [facility] L, 1522, [address], [facility], 120, [place] [id number], [place] [address], [facility], tel:[phone] [place], , [place]. [id number]. tel: tel: [phone] Aminta [place] Galileo-1 Shasta Referring In Womens 7-201 Latonya. Provider: Juliocesar MCCALLUM, 3 700 [facility] 1522, Center O, [address], [place], 120, St, , Ronnell Bruce, [facility] [place], [address]. tel:[phone] tel: , [place]. [id number] tel: [phone] Aminta [place] Apr-1 Shasta Referring In Womens 9-201 Latonya. Provider: Health XENA, 3 700 [facility] 1522, Center O, [address], [place], 120, St, [id number], Ronnell Bruce, [facility] [place], [address]. tel: [phone] tel: , [place]. [id number] tel: [phone] Family History Family Member Diagnosis Age At Onset Maternal Grandmother Osteoporosis Sister Renal disease Mother Leukemia Mother Renal disease Paternal Grandfather Cardiovascular Disease Maternal Grandfather Stroke Paternal Grandfather Hypertension Mother Thyroid Disorder Father Hypertension Immunizations Vaccine Date Status Comments Unknown Payers Payer name Insurance type Covered democrat ID Authorization(s) VANESA SWANSON [id number] Social History Type Description Quantity Date Captured [...] Complete OB Ultrasound > 14 Ordered Weeks ([id number]) Future Order: Radiology Order Ultrasound OB Follow-up ([id number]) Ordered Future Order: Lab Order Pap Smear [...]
--- OUTSIDE RECORDS SUMMARY | 2017-06-09 01:53 | External Medical Summary | Continuity of Care Document ---
:1985 Author Organization [facility] Address [address] [place], [place] [id number] Phone Care Team Providers Name Role Phone Pedro Tate MD Unavailable Unavailable Allergies, Adverse Reactions, Alerts Substance Reaction Severity Status amoxicillin rash Unknown Active WARNIN allergy(ies) could not be collected because the type is not supported. Please contact [facility] for further details. 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) w/o abn findings Suprvsn of preg w history of pre-term - labor, third trimester Supervision of other high risk - pregnancies, third trimester 36 weeks gestation of - Suprvsn of preg [...] other high risk - pregnancies, third trimester 38 weeks gestation of - Suprvsn of preg w history of pre-term - labor, third trimester Supervision of other high risk - pregnancies, third trimester Matern care for oth or susp poor fetl - gr, third tri, unsp 32 weeks gestation of - Suprvsn of preg w history of pre-term - labor, third trimester Supervision of other high risk - pregnancies, third trimester 34 weeks gestation of - Suprvsn of preg w history of pre-term - labor, third trimester Supervision of other high risk - pregnancies, third trimester 37 weeks gestation of - Suprvsn of preg [...] Procedures Procedure Date OB Visit No Charge Cult, pathgnc orgnsm, screen Results Test Name Date and Time Measure Units Reference Range Abnormal Flag Comments Panel Description: CULTURE, GROUP B STREP WITH SUSCEPTIBILITY CULTURE, GROUP B SEE NOTE CULTURE, GROUP B STREP WITH STREP WITH 14:01:00 SUSCEPTIBILITY MICRO NUMBER: SUSCEPTIBILITY [id number] TEST STATUS: FINAL SPECIMEN SOURCE: VAGINAL/ANORECTAL SPECIMEN QUALITY: ADEQUATE RESULT: No group B Streptococcus isolatedREPORT COMMENT:FASTING:UNKNOWNTest performed at [facility] [id number] [place] [address]Xasyungc: NEERU BETANCOURT DO,MPH Advance Directives Directive Yes / No Effective Date File Name Unknown Encounters Encounter Practice Location Reason(s) Diagnoses Date Provider Care Team Description For Visit Members Aminta Reynaga Suprraynan of preg w [place] Referring In Womens history of 3-201 Latonya. Provider: Juliocesar MCCALLUM, pre-term labor, 7 700 [facility] 700 marika Wallace of other high [place], risk pregnancies, 120, Center [id number], third [email or web address] [place] Reynaga 120, [place] weeks gestation Ronnell DELUNA, tel: of [phone] [place], [address] , [place]. [id number]. tel: tel: [phone] Aminta Reynaga Suprraynan of preg w Shasta Referring In Womens history of 6-201 Latonya. Provider: Juliocesar MCCALLUM pre-term labor, 7 700 [facility]onya [facility], [facility] 700 [place], ion of other high [place], risk pregnancies, 120, Center [id number], third [email or web address] Reynaga, [facility] 120, [place] weeks gestation Ronnell DELUNA, tel:[phone] of [id number] [place], , [place]. [id number]. tel: tel:[phone] [facility] Suprvsn of preg w Oct-0 [place]asta Referring In Womens history of 9-201 Latonya. Provider: Health PA, pre-term labor, 7 700 Latonya PO Box third Medical [place] L, 1522, trimesterSupervis Center 700 [place], ion of other high [place] Crow[place], risk pregnancies, 120, Center [id number], third [email or web address] Reynaga, [facility] 120, [place] weeks gestation Ronnell DELUNA, tel:[phone] of [id number] [place], , [place]. [id number]. tel: tel:[phone] [facility] Suprvsn of preg w Sep-2 [place]asta Referring In Womens history of 5-201 Latonya. Provider: Health PA, pre-term labor, 7 700 Latonya PO Box third Medical [place] L, 1522, trimesterSupervis Center 700 [place], ion of other high [place] Crow[place], risk pregnancies, 120, Center [id number], third [email or web address] [facility] [place] [facility] gestation Ronnell DELUNA, tel:[phone] of [id number] [place], , [place]. [id number]. tel: tel:[phone] [facility] Suprvsn of preg w Sep-1 [place]asta Referring In Womens history of 1-201 Latonya. Provider: Health PA, pre-term labor, 7 700 Latonya PO Box third [facility] [place] L, 1522, trimesterSupervis Center 700 [place], ion of other high [place] Crow[place], risk pregnancies, 120, Center [id number], third [email or web address] Reynaga, [place] 120, [place] weeks gestation Ronnell DELUNA, tel:[phone] of [id number] [place], , [place]. [id number]. tel: tel:[phone] [facility] Suprvsn of preg w Shasta Referring In Womens Ultrasound history of 1-201 Latonya. Provider: Juliocesar MCCALLUM, pre-term labor, 7 700 Latonya PO Box third Medical [place] L, 1522, trimesterSupervis Center [address] [place] [address], ion of other high [place] Crowder, risk pregnancies, 120, Center [id number], third Ronnell [place] 120, [place] trimesterMatern Ronnell DELUNA, tel:[phone] care for oth or [id number] [place], susp poor fetl , [place]. [id number]. grth, third tri, tel:+[phone] tel:[phone] unsp32 weeks [id number] gestation of [facility] Suprvsn of preg w [place]asta Referring In Womens history of 9-201 Latonya. Provider: Juliocesar MCCALLUM, pre-term labor, 7 700 Latonya PO Box third Medical [place] L, 1522, trimesterSupervis Center [address] [place] [address], ion of other high [place] Crowder, risk pregnancies, 120, Center [id number], third Ronnell [place] 120, [place] trimesterMatern Ronnell DELUNA, tel:[phone] care for oth or [id number] [place], susp poor fetl , [place]. [id number]. grth, third tri, tel: tel:+-[phone] unsp30 weeks [phone] [id number] gestation of [facility] Suprvsn of preg w Shasta Referring In Womens history of 7-201 Latonya. Provider: Juliocesar MCCALLUM, pre-term labor, 7 700 Latonya PO Box second Medical [place] L, 1522, triSupervision of Center [address] [place] [address], other high risk [place] Crowder, pregnancies, 120, Center [id number], second Ronnell [place] 120, [place] [email or web address] weeks Ronnell DELUNA, tel:[phone] gestation of [id number] [place], , [place]. [id number]. tel: tel:[phone] [facility] Suprvsn of preg w Shasta Referring In Womens history of 3-201 Latonya. Provider: Juliocesar MCCALLUM, pre-term labor, 7 700 Latonya PO Box second tri23 Medical [place] L, 1522, weeks gestation Center [address] [place] [address], of , [facility] [place], 120, Center [id number], Ronnell [facility] 120, [place] Ronnell DELUNA, tel:[phone] [place], , [place]. [id number]. tel: tel:[phone] [facility] Suprvsn of preg w Galileo- Shasta Referring In Womens history of 5-201 Latonya. Provider: Juliocesar MCCALLUM, pre-term labor, 7 700 Latonya PO Box second Medical [place] L, 1522, triSupervision of Center [address] [place] [address], other high risk , [facility], pregnancies, 120, Center [id number], [facility] Reynaga, [facility] 120, [place] [email or web address] weeks Ronnell DELUNA, tel:+2 gestation of [id number] [place], , [place]. [id number]. tel: tel:[phone] [facility] Suprvsn of preg w Galileo- Shasta Referring In Womens Ultrasound history of 5-201 Latonya. Provider: Juliocesar MCCALLUM, pre-term labor, 7 700 Latonya PO Box second Medical [place] L, 1522, triSupervision of Center [address] [place] [address], other high risk , [facility] [place] DELUNA, pregnancies, 120, Center [id number], second Ronnell, [place] 120, [place] [email or web address] weeks Ronnell DELUNA, tel:+ gestation of [id number] [place], , [place]. [id number]. tel: tel:[phone] [facility] December- Shasta In Womens 5-201 Latonya. Juliocesar MCCALLUM, 7 700 PO Box Medical 1522, Center [place], Dr [facility] [place], 120, [id number], Reynaga, [facility], tel:[phone] , [place]. tel: [phone] Aminta Reynaga Suprvsn of preg w December- [place]asta Referring In Womens history of 1-201 Latonya. Provider: Juliocesar MCCALLUM, pre-term labor, 7 700 Latonya PO Box second Medical [place] L, 1522, triSupervision of Center [facility] [place], other high risk , [place] DELUNA, pregnancies, 120, Center [id number], [facility] Ronnell [facility] 120, [place] [email or web address] weeks Ronnell DELUNA, tel:[phone] gestation of [id number] [place], , [place]. [id number]. tel: tel:[phone] [facility] Suprvsn of preg w Nov- [place]asta Referring In Womens history of 3-201 Latonya. Provider: Juliocesar MCCALLUM, pre-term labor, 7 700 Latonya PO Box first Medical [place] L, 1522, trimesterSupervis Center [facility], ion of other high , [place] DELUNA, risk pregnancies, 120, Center , [facility] Ronnell [facility] 120, [place] trimesterEncntr Ronnell DELUNA, tel:+2 screen for [phone] [place], infections w sexl , [place]. [id number]. mode of tel: tel:+[phone] transmissEncounte [phone] r for screening for oth infec/parastc diseasesEncounter for screening of [id number] weeks gestation of Associates [facility] Enclexiir for high school science tutor [place] Referring In Womens exam (general) 7-201 Hortencia. Provider: Juliocesar MCCALLUM, (routine) w/o abn 6 700 Latonya PO Box findingsPap Smear Medical [place] L, 1522, Screening, [facility] [address] [place], [facility] [place], 120, [place] [id number], Ronnell [facility] 120, [place] Ronnell DELUNA, tel:[phone] [place], , [place]. [id number]. tel: tel:[phone] Aminta Reynaga Decreased libido Dec-0 Shasta Referring In Womens 4-201 Latonya. Provider: Juliocesar MCCALLUM, 5 700 Latonya PO Box Medical [place] L, 1522, Center [facility] [place], [facility] [place], 120, Center [id number], Ronnell [facility] 120, [place] Ronnell DELUNA, tel:+ [phone] [facility] , . [id number]. tel: tel: [phone] [facility] Decreased libido Nov-0 [place]asta Referring In Womens 6-201 Latonya. Provider: Health XENA, 5 700 [facility] Medical [place] L, 1522, Center [address] [place], [facility], 120, [place] [id number], [place] [address], [facility], [place], tel:[phone] [facility] [id number] , . [id number]. tel: tel: [phone] [facility] Galileo-1 Shasta Referring In Womens 7-201 Latonya. Provider: Health XENA, 3 700 [facility] 1522, Center O, [address] [place], [place], 120, , [id number], [place], [address]. tel:[phone] tel:[phone] , . [id number] tel: [phone] Associates [facility] Apr- Shasta Referring In Womens 9-201 Latonya. Provider: Juliocesar MCCALLUM, 3 700 [facility] 1522, Center O, [address], [place], 120, St, [id number], Ronnell [place], [place], [address]. tel: [phone] tel: , . [id number] tel: [phone] Family History Family Member Diagnosis Age At Onset Maternal Grandmother Osteoporosis Sister Renal disease Mother Leukemia Mother Renal disease Paternal Grandfather Cardiovascular Disease Maternal Grandfather Stroke Paternal Grandfather Hypertension Mother Thyroid Disorder Father Hypertension Immunizations Vaccine Date Status Comments Unknown Payers Payer name Insurance type Covered democrat ID Authorization(s) VANESA SWANSON [id number] Social History Type Description Quantity Date Captured [...] Complete OB Ultrasound > 14 Ordered Weeks (79824) Future Order: Radiology Order Ultrasound OB Follow-up (06525) Ordered Future Order: Lab Order Pap Smear [...]
--- OUTSIDE RECORDS SUMMARY | 2017-06-09 01:55 | External Medical Summary | Continuity of Care Document ---
:1985 Author Organization [facility] Allergies Active Description Code Type Severity Reaction Onset Reported/ Identified Relationship Clinical to Patient Status Yes amoxicillin 3675 1 N/A rash Yes Pertussis PERTU 5 N/A Anaphylax Vaccine SSIS is Yes Tetanus 519 3 N/A Anaphylax Vaccines T is Toxoid Medications Medication Packaging Start Date Stop Date Route Dosage Sig Tablet 06/12/2015 WELLBUTRIN XL 6 take 1 tablet by oral route every day Tablet 07/21/2016 WELLBUTRIN XL 7 take 1 tablet by oral route every day Vial 12/19/2016 17-alphahydroxy 1 Progesterone INJ Weekly Problems Date Dx Coded Attending Type Code Diagnosis Diagnosed By 01/19/2017 Latonya Vegas O09.212 Suprvsn of preg w L history of pre-term labor, second tri 01/19/2017 Latonya Vegas O09.892 Supervision of L other high risk pregnancies, second trimester 01/19/2017 Latonya Vegas Z3A.19 19 weeks gestation L of 04/17/2017 Latonya Vegas O09.213 Suprvsn of preg w L history of pre-term labor, third trimester 04/17/2017 Latonya Vegas O09.893 Supervision of L other high risk pregnancies, third trimester 04/17/2017 Latonya Vegas O36.5930 Matern care for L oth or susp poor fetl grth, third tri, unsp 04/17/2017 Latonya Vegas Z3A.32 32 weeks gestation L of Procedures Code Description Performed By Performed On 01/19/2017 89720 Ultrasnd exam of preg uterus, compl 04/17/2017 35505 Ultrasnd preg uterus, flwup/repeat Results Encounters ACCT No. Visit Discharge Status Pt. Type Provider Facility Loc./Unit Complaint Date/Time [id number] 05/15/2017 05/15/2017 CLS Outpatient [place], 13:30:00 23:59:59 Latonya L [id number] 05/01/2017 05/01/2017 CLS Outpatient [place], 09:15:00 23:59:59 Latonya L [id number] 04/24/2017 04/24/2017 CLS Outpatient [place], 08:51:00 23:59:59 Latonya L [id number] 04/17/2017 04/17/2017 CLS Outpatient [place], 13:45:00 23:59:59 Latonya L [id number] 04/17/2017 04/17/2017 CLS Outpatient [place], 13:15:00 23:59:59 Latonya L [id number] 04/04/2017 04/04/2017 CLS Outpatient [place], 10:15:00 23:59:59 Latonya L [id number] 03/13/2017 03/13/2017 CLS Outpatient [place], 11:15:00 23:59:59 Latonya L [id number] 02/16/2017 02/16/2017 CLS Outpatient [place], 15:30:00 23:59:59 Latonya L [id number] 01/19/2017 01/19/2017 CLS Outpatient [place], 08:45:00 23:59:59 Latonya L [id number] 01/19/2017 01/19/2017 CLS Outpatient [place], 08:15:00 23:59:59 Latonya L [id number] 01/19/2017 01/19/2017 CLS Outpatient [place], 08:15:00 23:59:59 Latonya L [id number] 12/19/2016 12/19/2016 CLS Outpatient [place], 16:33:00 23:59:59 Latonya L [id number] 12/15/2016 12/15/2016 CLS Outpatient [place], 14:40:00 23:59:59 Latonya L [id number] 12/01/2016 12/01/2016 CLS Outpatient [place], 14:45:00 23:59:59 Latonya L [id number] 11/28/2016 11/28/2016 CLS Outpatient [place], 09:19:00 23:59:59 Latonya L [id number] 11/25/2016 11/25/2016 CLS Outpatient [place], 08:36:00 23:59:59 Latonya L [id number] 11/17/2016 11/17/2016 CLS Outpatient [place], 15:15:00 23:59:59 Latonya L [id number] 07/21/2016 07/21/2016 CLS Outpatient [place], 16:13:00 23:59:59 Latonya L [id number] 06/02/2016 06/02/2016 CLS Outpatient [place], 09:45:00 23:59:59 Hortencia Lynn [id number] 07/10/2015 07/10/2015 CLS Outpatient [place], 13:40:00 23:59:59 Latonya L [id number] 06/12/2015 06/12/2015 CLS Outpatient [place], 13:15:00 23:59:59 Latonya L [id number] 04/30/2015 04/30/2015 CLS Outpatient [facility], 11:15:00 23:59:59 Denise Moss [id number] 06/06/2017 Document 11:15:00 Registration [id number] 05/29/2017 Document 10:15:00 Registration [id number] 05/22/2017 Document 13:30:00 Registration
--- OUTSIDE RECORDS SUMMARY | 2017-06-09 01:55 | External Medical Summary | Continuity of Care Document ---
:1985 Author Organization [facility] Address [address] [place], [place] [id number] Phone Care Team Providers Name Role Phone Pedro Tate MD Unavailable Unavailable Allergies, Adverse Reactions, Alerts Substance Reaction Severity Status amoxicillin rash Unknown Active WARNIN allergy(ies) could not be collected because the type is not supported. [facility] contact [facility] for further details. Medications Medication Instructions [...] (start - stop) Clinical Status Encntr for director of therapy services exam (general) - (routine) w/o abn findings [...] Procedures Procedure Date OB Visit No Charge - ENTRY ANALYST Results Test Name Date and Time Measure Units Reference Range Abnormal Flag Comments Unknown Advance Directives Directive Yes / No Effective Date File Name Unknown Encounters Encounter Practice Location Reason(s) Diagnoses Date Provider Care Team Description For Visit Members Aminta Gauthier of preg w May-0 [place] Referring In Womens history of 9-201 [place]ony[place]. Provider: Juliocesar MCCALLUM, pre-term labor, 7 700 [address] Medical [place], 1522, [facility] [address] [place], ion of other high [place], risk pregnancies, 120, Center [id number], third [email or web address] [facility] 120, [place] weeks gestation Ronnell DELUNA, tel:[phone] of [id number] [place], , [place]. [id number]. tel: tel:[phone] Associates Ron[facility] Lópezn of preg w Apr-2 [place] Referring In Womens history of 5-201 Latonya. Provider: Juliocesar MCCALLUM, pre-term labor, 7 700 [place] [address] third Medical [place], 1522, [facility] [address] [place], ion of other high [place], risk pregnancies, 120, Center [id number], third [email or web address] [facility] 120, [place] weeks gestation Ronnell DELUNA, tel:[phone] of [phone] [place], , [place]. [id number]. tel: tel:[phone] Aminta Lópezn of preg w Sep-1 [place] Referring In Womens history of 1-201 Latonya. Provider: Juliocesar MCCALLUM, pre-term labor, 7 700 [place] [address] third Medical [place], 1522, [facility] [address] [place], ion of other high [place], risk pregnancies, 120, Center [id number], third [place], [facility] 120, [place] weeks gestation Ronnell DELUNA, tel:[phone] of [phone] [place], , [place]. [id number]. tel: tel:[phone] Associates [facility] Suprvsn of preg w [place] Referring In Womens Ultrasound history of 1-201 Latonya. Provider: Juliocesar MCCALLUM, pre-term labor, 7 700 [address] [address] third Medical [place], 1522, [facility] [address] [place] [address], ion of other high [place], risk pregnancies, 120, Center [id number], third Ronnell [place] 120, [place] trimesterMatern Ronnell DELUNA, tel:[phone] care for oth or [id number] [place], susp poor fetl , [place]. [id number]. grth, third tri, tel:[phone] tel:[phone] unsp32 weeks [phone] gestation of Associates Ron[facility] Suprvsn of preg w [place] Referring In Womens history of 9-201 Latonya. Provider: Juliocesar MCCALLUM, pre-term labor, 7 700 [place] [address] third Medical [place], 1522, trimester[facility]vis Center [address] [place] [address], ion of other high [place], risk pregnancies, 120, Center [id number], third Ronnell [place] 120, [place] trimesterMatern Ronnell DELUNA, tel:[phone] care for oth or [id number] [place], susp poor fetl , [place]. [id number]. grth, third tri, tel: tel:[phone] unsp30 weeks [phone] gestation of Associates [facility] Suprvsn of preg w [place] Referring In Womens history of 7-201 Latonya. Provider: Juliocesar MCCALLUM, pre-term labor, 7 700 [place] [address] second Medical [place], 1522, triSupervision of Center [address] [place] [address], other high risk [place], pregnancies, 120, Center [id number], second Ronnell [place] 120, [place] [email or web address] weeks Ronnell DELUNA, tel:[phone] gestation of [id number] [place], , [place]. [id number]. tel: tel:[phone] [facility] Suprvsn of preg w [place] Referring In Womens history of 3-201 Latonya. Provider: Juliocesar MCCALLUM, pre-term labor, 7 700 [place] PO Box second tri23 Medical [place] L, 1522, weeks gestation Center [address] [place] [address], of , [facility] [place], 120, Center [id number], Ronnell [facility] 120, [place] Ronnell [place], tel:[phone] [place], , [place]. [id number]. tel: tel:[phone] Associates [facility] Suprvsn of preg w Galileo- [place] Referring In Womens history of 5-201 Latonya. Provider: Juliocesar MCCALLUM, pre-term labor, 7 700 [place] PO Box second Medical [place], 1522, triSupervision of Center [address] [place] [address], other high risk , [facility], pregnancies, 120, Center [id number], page hospital [place], [facility] 120, [place] [id number] weeks Ronnell DELUNA, tel:+2 gestation of [id number] [place], , [place]. [id number]. tel: tel:[phone] Associates [facility] Suprvsn of preg w Galileo- [place] Referring In Womens Ultrasound history of 5-201 Latonya. Provider: Juliocesar MCCALLUM, pre-term labor, 7 700 [place] [address] Box second Medical [place], 1522, triSupervision of Center [address] [place] [address], other high risk , [facility] [place], pregnancies, 120, Center [id number], second Ronnell, [place] 120, [place] [email or web address] weeks Ronnell DELUNA, tel:+ gestation of [id number] [place], , [place]. [id number]. tel: tel:[phone] Associates Ronnell December- [place] In Womens 5-201 Latonya. Juliocesar MCCALLUM, 7 700 PO Box Medical 1522, Center [place], Dr [facility] [place], 120, [id number], [place], [facility], tel:[phone] , [place]. tel: [phone] Aminta [place] Suprvsn of preg w December- [place] Referring In Womens history of 1-201 Latonya. Provider: Health [facility], pre-term labor, 7 700 [place]ony[place] PO Box second Medical [place] L, 1522, triSupervision of Center [address] [place] [address], other high risk , [place], pregnancies, 120, Center [id number], page hospital Ronnell [facility] 120, [place] [email or web address] weeks Ronnell [place], tel:[phone] gestation [place] [id number] [place], , [place]. [id number]. tel: tel:[phone] Associates [facility] Suprvsn of preg w Nov- [place] Referring In Womens history of 3-201 Latonya. Provider: Health XENA, pre-term labor, 7 700 [place] PO Box first Medical [place] L, 1522, trimesterSupervis Center [address] [place] [address], ion of other high , [place], risk pregnancies, 120, Center , first Ronnell [facility] 120, [place] trimesterEncounte Ronnell DELUNA, tel:2 r for [phone] [place], screening of , [place]. [id number]. [id number] weeks tel: tel:[phone] gestation of [phone] pregnancyEncntr screen for infections w sexl mode of transmissEncounte r for screening for oth infec/parastc diseases Associates [facility] Pap Smear [place] Referring In Womens Screening, -201 [place]. Provider: Juliocesar MCCALLUM, CervixEncntr for 6 700 [place]ony[place] PO Box director of therapy services exam Medical [place], 1522, (general) Center [address] [place] [address], (routine) w/o abn , [place], findings 120, Center [id number], Ronnell [facility] 120, [place] Ronnell DELUNA, tel:[phone] [place], , [place]. [id number]. tel: tel:[phone] Associates Ronnell Decreased libido Dec-0 [place] Referring In Womens 4-201 Latonya. Provider: Juliocesar MCCALLUM, 5 700 [place] PO Box Medical [place], 1522, Center [facility] [place], [place], 120, Center [id number], Ronnell [facility] 120, [place] Ronnell DELUNA, tel:[phone] [facility] , . [id number]. tel: tel: [phone] Associates Ronnell Decreased libido Nov-0 [place] Referring In Womens 6-201 Latonya. Provider: Health XENA, 5 700 [facility] Medical [place] L, 1522, Center [address], [facility], 120, [place] [id number], [place] [address], [facility], [place], tel:[phone] [facility] , . [id number]. tel: tel: [phone] Associates Ronnell Galileo-1 [place] Referring In Womens 7-201 Latonya. Provider: Health XENA, 3 700 [facility] 1522, Center O, [address] [place], [place], 120, , [id number], [place], [address]. tel:[phone] tel:[phone] , . [id number] tel: [phone] Aminta [place] Apr- [place] Referring In Womens 9-201 Latonya. Provider: Juliocesar MCCALLUM, 3 700 [facility] 1522, Center O, [address], [place], 120, St, [id number], Ronnell [place], [place], [address]. tel: [phone] tel: , . [id number] tel: [phone] Family History Family Member Diagnosis Age At Onset Maternal Grandmother Osteoporosis Sister Renal disease Mother Leukemia Mother Renal disease Paternal Grandfather Cardiovascular Disease Maternal Grandfather Stroke Paternal Grandfather Hypertension Mother Thyroid Disorder Father Hypertension Immunizations Vaccine Date Status Comments Unknown Payers Payer name Insurance type Covered republican ID Authorization(s) VANESA SWANSON [id number] Social History Type Description Quantity Date Captured Alcohol Use Details No Caffeine Use Details Unknown Tobacco Use Status Unknown Smoking Status Never smoker Vital Signs Date / Height Weight BMI Pulse Blood Temperature Respiratory Body Head BMI Time: Rate Pressure Rate Surface Circumference percentile Area 141.00 24.5 lbs 8 mm[Hg] 9:50 kg/m AM eter (2) Chief Complaint And Reason For Visit Unknown Chief Complaint And Reason For Visit Reason For Referral Reason For Referral Unknown Plan Of Care Date Type Action Status Appointment Zulma Gallagher BOOKED Appointment Zulma Gallagher BOOKED Appointment Zulma Gallagher BOOKED Future Order: Radiology Order Complete OB Ultrasound > 14 Ordered Weeks ([id number]) Future Order: Radiology Order Ultrasound OB Follow-up ([id number]) Ordered Future Order: Lab Order Pap Smear [...]
[2017-06-09] MEDS: LR 1,000 ML IV PRN ×2 (02:35→04:01)
[2017-06-09] MEDS ORDERED: MAG-AL + SIM ORAL LIQUID 30ml PO PRN (03:05)
[2017-06-09] MEDS ORDERED: METHYLERGONOVINE 0.2 MG/ML INJECTION IM PRN (03:05)
[2017-06-09] MEDS ORDERED: CALCIUM CARBONATE Chewable 500mg TABLET PO PRN (03:05)
[2017-06-09] MEDS ORDERED: ACETAMINOPHEN 500 MG TABLET PO PRN (03:05)
[2017-06-09] MEDS ORDERED: CARBOPROST 250 MCG/ML INJECTION IM PRN (03:05)
[2017-06-09 03:53] VITALS: BMI 24.4
[2017-06-09] MEDS ORDERED: INFLUENZA VAC QIV 2017-18 (Fluarix*)(>=3yo) 0.5ml IM ONE (05:19)
[2017-06-09] MEDS ORDERED: HYDROCORTISONE 2.5% CREAM 30gm RECTALLY PRN (05:36)
[2017-06-09] MEDS ORDERED: DiphenhydrAMINE 25 MG CAPSULE PO PRN (05:36)
[2017-06-09] MEDS ORDERED: OXYTOCIN DRIP 30 UNIT/500 ML ML IV SCH (05:36)
[2017-06-09] MEDS ORDERED: MEASLES-MUMPS-RUBELLA VACCINE 0.5ml INJECTION SQ ONE (05:36)
[2017-06-09] MEDS: IBUPROFEN 800 MG TABLET PO PRN ×2 (06:36→22:33)
[2017-06-09] MEDS: DOCUSATE CALCIUM 240 MG CAPSULE PO SCH ×2 (06:39→09:53)
[2017-06-09] MEDS: HYDROCODONE/APAP 5mg/325mg TABLET PO PRN ×3 (07:33→13:26)
--- NOTE | 2017-06-09 07:43 | Anesthesia Preoperative Report ---
Anesthesia Epidural/Spinal Rec - Date and Time Date: 06/09/17 Preoperative Diagnosis: Term SROM Procedure: Labor Epidural Plan: Epidural - Vital Signs Vital Signs: Temperature 98.5 F 06/09/17 02:10 Pulse Rate 63 06/09/17 02:10 Respiratory Rate 20 06/09/17 02:10 Blood Pressure 111/70 06/09/17 02:10 Pulse Oximetry 99 06/09/17 02:10 /Para: P:2 - Medictaions & Allergies Inpatient Medications: Current Medications Acetaminophen (Tylenol) 500 - 1,000 mg PO Q4H PRN PRN Reason: Pain Hydrocodone Bitart/Acetaminophen ([place] 5/325) 1 - 2 tab PO Q4H PRN PRN Reason: Pain Last Admin: 06/09/17 07:33 Dose: 1 tab Al Hydroxide/Mg Hydroxide (Maalox Plus) 30 ml PO Q3H PRN PRN Reason: Indigestion Calcium Carbonate (Tums) 500 - 1,000 mg PO Q2H PRN PRN Reason: Indigestion Carboprost Tromethamine (Hemabate) 250 mcg IM O PRN PRN Reason: .Downtime Diphenhydramine HCl (Benadryl) 25 - 50 mg PO Q6H PRN PRN Reason: Itching Docusate Calcium (Surfak) 240 mg PO DAILY [facility] Last Admin: 06/09/17 06:39 Dose: 240 mg Hydrocortisone (Anusol-Hc 2.5% Cream) 1 applic RECTALLY PRN PRN PRN Reason: Hemorrhoids Oxytocin (Pitocin Drip) 30 unit in 500 mls @ 95 mls/hr IV .Q5H16M [facility] Stop: 06/09/17 10:51 Last Admin: 06/09/17 06:09 Dose: 95 mls/hr Ibuprofen (Motrin) 800 mg PO Q8H PRN PRN Reason: Pain Last Admin: 06/09/17 06:36 Dose: 800 mg Magnesium Hydroxide (Mom) 30 ml PO DAILY PRN PRN Reason: Constipation Methylergonovine Maleate (Methergine) 0.2 mg IM O PRN Misoprostol (Cytotec) 800 mcg MO ONCE PRN Phenylephrine HCl (Anusol Supp) 1 supp MO PRN PRN Allergies/Adverse Reactions: Allergies Allergy/AdvReac Type Severity Reaction Status Date / Time Pertussis Vaccines Allergy Anaphylactic Verified 06/09/17 03:04 Shock Tetanus & Diphtheria Allergy Severe ANAPHYLACTI Uncoded 06/09/17 03:04 Tox,Adult C penicillin Allergy Uncoded 06/09/17 03:04 - Home Medications Home Medications: Home Medications Medication Instructions Recorded Confirmed Type Vits W-Ca,Fe,Fa(<1MG) 1 tab PO DAILY #0 01/17/11 History () Lactobacillus Acidophilus 1 cap PO #0 02/04/13 History [Acidophilus] Dha Algal-900 05/23/17 History - Medical History Respiratory: DENIES: Asthma, Bronchitis, Chronic Obstructive Pulmonary Disease (COPD), Dyspnea, Orthopnea, Pulmonary Embolism, Pneumonia, Upper Respiratory Infection, Pulmonary Edema, Sleep Apnea, Tuberculosis, Other Cardiovascular: DENIES: Abnormal EKG, Angina, Arrhythmia, Congestive Heart Failure, Coronary Artery Disease, Heart Murmur, Hypertension, Hypotension, High Cholesterol, Myocardial Infarction, Rheumatic Fever, Valvular Heart Disease, Other Gastrointestional: DENIES: Obstructive Bowel, Hepatitis, Cirrhosis, Nausea or Vomiting Present, Gastroesophageal Reflux Disease, Gastrointestinal Bleeding, Hiatal Hernia, Ulcer , Morbid Obesity, Other Neuro/Musculoskeletal: Denies: HX.MS.OSAR, Back Problems, Cerebrovascular Accident, Depression, Headaches, Loss of Consciousness, Muscle Weakness, Neuromuscular Disorder, Paralysis, Paresthesia, Syncope, Seizures, Other Renal/Endocrine: DENIES: Diabetes Mellitus Type 1, Diabetes Mellitus Type 2, Renal Failure, Dialysis, Thyroid Disease, Weight Loss, Weight Gain, Other Other History: DENIES: Anesthesia Reactions, Now, Blood Transfusions, Chemotherapy , Cancer, Hemophilia, Malignant Hyperthermia, Sickle Cell Disease, Other - Surgical History Anesthesia Reactions: None Hx Family Anesthesia Reaction: No History of Motion Sickness: No - Social History Smoking Status: Never smoker Second Hand Exposure: No Substance Use Type: does not use Alcohol Intake: never Alcohol Intake Frequency: does not drink Hx Chewing Tobacco Use: No - Pertinent Findings Lab Data: CBC and BMP 06/09/17 02:43 - Physical Exam Respiratory Exam: lungs clear, bilateral breath sounds equal Cardiovascular Exam: regular rate and rhythm, no murmur - Airway Assessment Mallampati Score: I TMD: 3 Fingerbreadths Neck Extension: good Overall Assessment: no airway concerns - ASA ASA Score: 2 - Discussion Discussion: Discussed risks/options/alternatives of anesthesia and questions answered. Patient consents. Nursing pain assessment noted. Anesthesia Discussion: spouse Attestation Statement: Prior to the delivery of any anesthetic medication, I examined the patient, developed the plan, obtained the patient's consent and discussed the risk and benefits of the procedure with the patient/guardian.
[2017-06-09] MEDS ORDERED: NALOXONE 0.4 MG/ML INJECTION IVP PRN (07:44)
[2017-06-09] MEDS ORDERED: ROPIVACAINE 1% 10MG/ML INJ 200 MG, SUFentanil 50 MCG in NS 100 ML EPI PRN (07:44)
[2017-06-09] MEDS ORDERED: DiphenhydrAMINE 50 MG/ML INJECTION IVP PRN (07:44)
[2017-06-09] MEDS ORDERED: ONDANSETRON 4 MG/2 ML INJECTION IVP PRN (07:44)
--- NOTE | 2017-06-09 07:44 | Anesthesia Postoperative Note ---
- Date and Time Date: 06/09/17 Time: 07:43 - Status Patient Participated in Evaluation: Patient Participated in Person Vital Signs: Temperature 98.5 F 06/09/17 02:10 Pulse Rate 63 06/09/17 02:10 Respiratory Rate 20 06/09/17 02:10 Blood Pressure 111/70 06/09/17 02:10 Pulse Oximetry 99 06/09/17 02:10 Respiratory Function: Airway Patent, Regular Respirations Cardiovascular Function: Regular Pulse Mental Status: Alert and Oriented Pain Intensity: 0 Hydration: Taking PO Fluids Complications During Recover: None Apparent - Follow-Up Instructions Instructions: Per Surgeon
--- NOTE | 2017-06-09 11:04 | Anesthesia Postoperative Note ---
- Date and Time Date: 06/09/17 Time: 11:00 - Status Vital Signs: Temperature 98.5 F 06/09/17 02:10 Pulse Rate 63 06/09/17 02:10 Respiratory Rate 20 06/09/17 02:10 Blood Pressure 111/70 06/09/17 02:10 Pulse Oximetry 99 06/09/17 02:10 Respiratory Function: Airway Patent, Regular Respirations Cardiovascular Function: Regular Pulse Mental Status: Alert and Oriented Pain Intensity: 4 (back, epidural site) Hydration: Taking PO Fluids Complications During Recover: None Apparent - Follow-Up Instructions Instructions: Per Surgeon
--- NOTE | 2017-06-09 13:35 | Labor and Delivery Note ---
Date: 06/09/2017 Zulma is a 31-year-old 3, para 1-1-0-2 at 39 weeks 4 days gestational age who presented to [facility] with gross rupture of membranes. She received an epidural. She progressed steadily onto complete. She only had to push for a few contractions and had a spontaneous vaginal delivery of a viable male , Apgars 8/9, weight 3248 grams, name "Ray." The baby was vigorous at delivery so he was placed on mom's abdomen and the cord clamping was delayed for more than 2 minutes. The placenta delivered spontaneously. There were no lacerations. Mom and baby tolerated the delivery well. MTDD
[2017-06-10] MEDS: DOCUSATE CALCIUM 240 MG CAPSULE PO SCH (10:22)
[2017-06-10] MEDS: IBUPROFEN 800 MG TABLET PO PRN ×2 (10:22→20:57)
--- NOTE | 2017-06-10 11:05 | OB/GYN Progress Note ---
OB-PP Progress Note - General PPD1 Maternal Group B Strep: Negative Maternal blood type: O+ Maternal Rubella Status: Immune - Subjective Date: 06/10/17 Lochia: Minimal Pain: controlled Voiding: voiding Nausea or Vomiting Present: No - Objective Vital Signs: Last Vital Signs Temp 97.8 F 06/10/17 03:45 Pulse 49 L 06/10/17 03:45 Resp 16 06/10/17 03:45 BP 102/66 06/10/17 03:45 Pulse Ox 100 06/10/17 03:45 Urine Output: good General: alert and oriented Abdomen: fundus firm, non-tender Extremities: non-tender Edema: none - Assessment Assessment: SP, - Plan Plan: routine care Expected date of discharge: 06/11/17
[2017-06-10 12:09] VITALS: O2SAT 99
[2017-06-10 21:19] VITALS: RESP 16
[2017-06-11] MEDS: IBUPROFEN 800 MG TABLET PO PRN (08:24)
[2017-06-11] MEDS: DOCUSATE CALCIUM 240 MG CAPSULE PO SCH (08:24)
[2017-06-11 09:21] VITALS: BP 120/78; PULSE 73; TEMP 97.9
== END 2017-06-11 11:10 | disposition home or self-care (01) | DRG 775 ==
LOC: OBOBS 01:45 → MC 01:47
PROVIDERS: ADMIT Obstetrics & Gynecology; ATTEND Obstetrics & Gynecology